=== PATIENT | male | born 1945 | race Two or more races ===

== ENCOUNTER 2016-07-18 15:46 | Inpatient (IN) | payer MEDICARE, OTHER ==
[~2016-07-18] VITALS: Ht 170.2 cm; Wt 84.5 kg
[~2016-07-18 15:46] MED LIST: ADV250 IH; ASPI81 PO; ATEN25 PO; CLOP75 PO; PIOG15TA21 PO; SIMV20TA6 PO; TERA1CAP4 PO
[2016-07-18] MEDS ORDERED: METF500T4 PO (15:57)
[2016-07-18] MEDS ORDERED: HYDR25TA PO (15:57)
[2016-07-18 16:06] LABS: GLUCOSE,POINT OF CARE 149 MG/DL (70-110)
[2016-07-18] MEDS ORDERED: ONDANSETRON HCL 4 MG/2 ML VIAL IVP ONE (16:15)
[2016-07-18] MEDS ORDERED: BARIUM SULFATE 0.1% SUSPENSION 450 ML BOTTLE PO ONE (16:15)
[2016-07-18] MEDS ORDERED: MORPHINE SULFATE 4 MG/ML SYRINGE IVP ONE ×2 (16:15→19:15)
[2016-07-18 16:23] LABS: BASOPHILS % (AUTO) 0.3 % (0.0-2.0); EOSINOPHILS % (AUTO) 0 % (1.0-6.0); HEMATOCRIT 40.8 % (41-53); HEMOGLOBIN 13.5 g/dL (13.5-17.5); LYMPHOCYTES # (AUTO) 0.9 K/uL (1.0-4.8); MEAN CORPUSCULAR HEMOGLOBIN 31.9 pg (26.0-34.0); MEAN CORPUSCULAR HGB CONC 33.1 G/dL (31.0-37.0); MEAN CORPUSCULAR VOLUME 96 fL (80-100); MONOCYTES # (AUTO) 0.9 K/uL (0.1-1.0); MONOCYTES % (AUTO) 5.7 % (2.0-9.0); NEUTROPHILS # (AUTO) 13.5 K/uL (1.8-7.7); PLATELET COUNT (AUTO) 280 K/uL (150-450); RED BLOOD CELL COUNT(AUTO) 4.23 MIL/uL (4.50-5.90); RED CELL DISTRIBUTION WIDTH 13.8 % (11.5-14.5); WHITE BLOOD COUNT (AUTO) 15.3 K/uL (4.5-11.0)
[2016-07-18] MEDS ORDERED: SODIUM CHLORIDE 0.9% 1,000 ML IV ONE ×2 (16:45→18:45)
[2016-07-18 16:50] LABS: RBC MORPHOLOGY COMMENT ABNORMAL RBC MORPH
[2016-07-18 17:05] LABS: BILIRUBIN,TOTAL 0.9 mg/dL (0.1-1.0); CREATININE 1.86 mg/dL (0.60-1.30); TOTAL PROTEIN, SERUM 8.8 g/dL (6.4-8.2)
[2016-07-18 17:08] LABS: APPEARANCE,URINE TURBID (CLEAR); GLUCOSE, URINE (UA) NEGATIVE (NEGATIVE); KETONES,URINE TRACE mg/dL (NEGATIVE); LEUKOCYTE ESTERASE ,URINE LARGE (NEGATIVE); OCCULT BLOOD,URINE MODERATE (NEGATIVE); PH,URINE 5.5 (5.0-8.0); PROTEIN,URINE SEE CONFIRM (NEGATIVE)
[2016-07-18 17:09] LABS: POTASSIUM 2.9 mmol/L (3.5-5.1)
[2016-07-18 17:15] LABS: ADD UA MICROSCOPIC YES
[2016-07-18] MEDS ORDERED: POTASSIUM CHLORIDE 20 MEQ ER TABLET PO ONE (17:15)
[2016-07-18 17:16] LABS: SQUAMOUS EPITHELIAL CELL,UR Rare /LPF (None Seen); SULFOSALICYLIC ACID,URINE 3+ (Negative); WBC,URINE >100 /HPF (0-5)
[2016-07-18 17:28] LABS: MAGNESIUM 1.5 mg/dL (1.80-2.40); PHOSPHORUS 2.1 mg/dL (2.5-4.9)
[2016-07-18] MEDS: POTASSIUM CHL 10 MEQ/WATER 50 ML IV SCH ×2 (17:29→18:27)
[2016-07-18 19:04] LABS: LACTIC ACID 2.7 mmol/L (0.4-2.0)
[2016-07-18] MEDS ORDERED: CefTRIAXone SODIUM 2 GM in DEXTROSE 5%-WATER 50 ML IV ONE (19:45)
[2016-07-18 20:21] LABS: REFLEX LACTIC ACID? YES YES
[2016-07-18] MEDS ORDERED: BISACODYL 10 MG RECTAL RECTAL SUPPOSITORY PR PRN (21:15)
[2016-07-18] MEDS ORDERED: IPRATROPIUM BROMIDE 0.5 MG/2.5 ML NEB SOLUTION NEB PRN (21:15)
[2016-07-18] MEDS ORDERED: ALBUTEROL SULFATE 2.5 MG/0.5 ML NEB SOLUTION NEB PRN (21:15)
[2016-07-18] MEDS ORDERED: HYDROCODONE/ACETAMINOPHEN 5-325 MG TABLET PO PRN (21:15)
[2016-07-18] MEDS ORDERED: ONDANSETRON HCL 4 MG/2 ML VIAL IVP PRN (21:15)
[2016-07-18] MEDS ORDERED: MAGNESIUM HYDROXIDE SUSPENSION 30 ML UDCUP PO PRN (21:15)
[2016-07-18] MEDS ORDERED: DEXTROSE 50%-WATER 25 GM/50 ML SYRINGE IVP PRN (21:15)
[2016-07-18] MEDS ORDERED: MORPHINE SULFATE 4 MG/ML SYRINGE IVP PRN (21:15)
[2016-07-18] MEDS ORDERED: POTASSIUM PHOS,M-BASIC-D-BASIC 20 MMOL in DEXTROSE 5%-WATER 150 ML IV ONE (21:30)
[2016-07-18 21:44] LABS: BASOPHILS % (AUTO) 0.1 % (0.0-2.0); EOSINOPHILS % (AUTO) 0 % (1.0-6.0); HEMOGLOBIN 12.4 g/dL (13.5-17.5); LYMPHOCYTES # (AUTO) 0.9 K/uL (1.0-4.8); LYMPHOCYTES % (AUTO) 5.7 % (22.0-44.0); MEAN CORPUSCULAR HEMOGLOBIN 31.7 pg (26.0-34.0); MEAN CORPUSCULAR HGB CONC 32.5 G/dL (31.0-37.0); MEAN CORPUSCULAR VOLUME 97 fL (80-100); MONOCYTES % (AUTO) 6.7 % (2.0-9.0); NEUTROPHILS # (AUTO) 13.5 K/uL (1.8-7.7); PLATELET COUNT (AUTO) 245 K/uL (150-450); RED BLOOD CELL COUNT(AUTO) 3.91 MIL/uL (4.50-5.90); RED CELL DISTRIBUTION WIDTH 13.2 % (11.5-14.5); WHITE BLOOD COUNT (AUTO) 15.4 K/uL (4.5-11.0)
[2016-07-18 21:47] LABS: NEUTROPHILS % (AUTO) 87.5 % (40.0-70.0)
[2016-07-18 22:03] LABS: RBC MORPHOLOGY COMMENT NORMAL RBC MORPH
[2016-07-19] MEDS: HEPARIN SODIUM,PORCINE 5,000 UNITS/ML VIAL SQ SCH ×4 (00:24→23:40)
[2016-07-19 07:20] LABS: BASOPHILS % (AUTO) 0.1 % (0.0-2.0); EOSINOPHILS % (AUTO) 0.1 % (1.0-6.0); HEMATOCRIT 33.7 % (41-53); HEMOGLOBIN 11.2 g/dL (13.5-17.5); LYMPHOCYTES # (AUTO) 0.5 K/uL (1.0-4.8); LYMPHOCYTES % (AUTO) 4.2 % (22.0-44.0); MEAN CORPUSCULAR HGB CONC 33.2 G/dL (31.0-37.0); MEAN CORPUSCULAR VOLUME 96 fL (80-100); MONOCYTES # (AUTO) 0.7 K/uL (0.1-1.0); NEUTROPHILS # (AUTO) 10.9 K/uL (1.8-7.7); PLATELET COUNT (AUTO) 209 K/uL (150-450); RED CELL DISTRIBUTION WIDTH 13.8 % (11.5-14.5); WHITE BLOOD COUNT (AUTO) 12.1 K/uL (4.5-11.0)
[2016-07-19 07:21] LABS: NEUTROPHILS % (AUTO) 89.6 % (40.0-70.0); RBC MORPHOLOGY COMMENT NORMAL RBC MORPH
[2016-07-19 07:35] LABS: ALBUMIN 2.3 g/dL (3.4-5.0); BILIRUBIN,TOTAL 0.5 mg/dL (0.1-1.0); CALCIUM, TOTAL 7.1 mg/dL (8.8-10.5); CREATININE 1.55 mg/dL (0.60-1.30); POTASSIUM 3.3 mmol/L (3.5-5.1)
[2016-07-19] MEDS: PANTOPRAZOLE SODIUM 40 MG/VIAL IVP SCH (07:59)
[2016-07-19] MEDS: DOCUSATE SODIUM 100 MG CAPSULE PO SCH ×2 (08:00→21:00)
[2016-07-19] MEDS: CLOPIDOGREL BISULFATE 75 MG TABLET PO SCH (08:00)
[2016-07-19] MEDS: ASPIRIN 81 MG CHEWABLE TABLET PO SCH (08:00)
[2016-07-19] MEDS: ATENOLOL 25 MG TABLET PO SCH (08:27)
[2016-07-19] MEDS: TERAZOSIN HCL 1 MG CAPSULE PO SCH (08:27)
[2016-07-19] MEDS: PIOGLITAZONE HCL 15 MG TABLET PO SCH (08:27)
[2016-07-19 09:55] VITALS: BP 132/74
[2016-07-19 11:10] VITALS: BP 116/71
[2016-07-19] MEDS ORDERED: PNEUMOCOCCAL VACCINE POLYVALENT 0.5 ML VIAL [PPSV23] IM ONE (13:00)
[2016-07-19 15:15] VITALS: BP 122/58
[2016-07-19] MEDS ORDERED: POTASSIUM CHLORIDE 20 MEQ ER TABLET PO PRN (15:30)
[2016-07-19] MEDS: ACETAMINOPHEN 325 MG TABLET PO PRN ×2 (16:02→23:40)
[2016-07-19 19:19] VITALS: BP 123/64
[2016-07-19] MEDS ORDERED: CefTRIAXone 1 GM/DEXTROSE 50 ML IV SCH (21:00)
[2016-07-19] MEDS: SIMVASTATIN 20 MG TABLET PO SCH (21:14)
[2016-07-19] MEDS ORDERED: SODIUM CHLORIDE 0.9% 500 ML IV ONE (23:37)
[2016-07-19 23:51] VITALS: BP 134/63
[2016-07-20 03:59] VITALS: BP 115/64
[2016-07-20 06:45] LABS: BASOPHILS % (AUTO) 0.1 % (0.0-2.0); EOSINOPHILS % (AUTO) 0.6 % (1.0-6.0); HEMOGLOBIN 11.7 g/dL (13.5-17.5); LYMPHOCYTES # (AUTO) 0.8 K/uL (1.0-4.8); LYMPHOCYTES % (AUTO) 8.5 % (22.0-44.0); MEAN CORPUSCULAR HEMOGLOBIN 31.8 pg (26.0-34.0); MEAN CORPUSCULAR HGB CONC 32.4 G/dL (31.0-37.0); MEAN CORPUSCULAR VOLUME 98 fL (80-100); MONOCYTES # (AUTO) 0.9 K/uL (0.1-1.0); MONOCYTES % (AUTO) 10.4 % (2.0-9.0); NEUTROPHILS # (AUTO) 7.3 K/uL (1.8-7.7); NEUTROPHILS % (AUTO) 80.4 % (40.0-70.0); PLATELET COUNT (AUTO) 223 K/uL (150-450); RED BLOOD CELL COUNT(AUTO) 3.67 MIL/uL (4.50-5.90); RED CELL DISTRIBUTION WIDTH 13.9 % (11.5-14.5); WHITE BLOOD COUNT (AUTO) 9.1 K/uL (4.5-11.0)
[2016-07-20 07:01] LABS: ALBUMIN 2.2 g/dL (3.4-5.0); BILIRUBIN,TOTAL 0.4 mg/dL (0.1-1.0); CALCIUM, TOTAL 7.8 mg/dL (8.8-10.5); CREATININE 1.57 mg/dL (0.60-1.30); POTASSIUM 3.8 mmol/L (3.5-5.1); TOTAL PROTEIN, SERUM 7.1 g/dL (6.4-8.2)
[2016-07-20 07:46] LABS: GLUCOSE,POINT OF CARE 113 MG/DL (70-110)
[2016-07-20 08:00] VITALS: BP 136/96
[2016-07-20 08:01] LABS: GLUCOSE,POINT OF CARE 109 MG/DL (70-110)
[2016-07-20] MEDS: CLOPIDOGREL BISULFATE 75 MG TABLET PO SCH (08:49)
[2016-07-20] MEDS: TERAZOSIN HCL 1 MG CAPSULE PO SCH (08:49)
[2016-07-20] MEDS: DOCUSATE SODIUM 100 MG CAPSULE PO SCH ×2 (08:49→21:00)
[2016-07-20] MEDS: PIOGLITAZONE HCL 15 MG TABLET PO SCH (08:49)
[2016-07-20] MEDS: ATENOLOL 25 MG TABLET PO SCH (08:49)
[2016-07-20] MEDS: ASPIRIN 81 MG CHEWABLE TABLET PO SCH (08:49)
[2016-07-20] MEDS: HEPARIN SODIUM,PORCINE 5,000 UNITS/ML VIAL SQ SCH ×2 (08:50→17:16)
[2016-07-20] MEDS: PANTOPRAZOLE SODIUM 40 MG/VIAL IVP SCH (08:50)
[2016-07-20 11:17] VITALS: BP 119/62
[2016-07-20 11:47] LABS: GLUCOSE,POINT OF CARE 127 MG/DL (70-110)
[2016-07-20] MEDS: PIPERACILLIN/TAZO 3.375 GM/D5W 50 ML IV SCH ×2 (12:15→17:18)
[2016-07-20] MEDS: INSULIN ASPART 100 UNITS/ML SQ PRN ×2 (12:15→17:23)
[2016-07-20 15:03] VITALS: BP 119/62
[2016-07-20 19:36] VITALS: BP 149/80
[2016-07-20] MEDS: ACETAMINOPHEN 325 MG TABLET PO PRN (20:12)
[2016-07-20] MEDS: SIMVASTATIN 20 MG TABLET PO SCH (20:12)
[2016-07-20] MEDS: ZOLPIDEM TARTRATE 5 MG TABLET PO PRN (21:52)
[2016-07-20 23:17] VITALS: BP 116/50
[2016-07-21 00:46] LABS: GLUCOSE,POINT OF CARE 97 MG/DL (70-110)
[2016-07-21 03:52] LABS: GLUCOSE COMMENT 1 Received Meds; GLUCOSE,POINT OF CARE 129 MG/DL (70-110)
[2016-07-21 04:36] VITALS: BP 114/57
[2016-07-21] MEDS: PIPERACILLIN/TAZO 3.375 GM/D5W 50 ML IV SCH ×5 (06:00→23:49)
[2016-07-21 06:29] LABS: BASOPHILS % (AUTO) 0.1 % (0.0-2.0); EOSINOPHILS % (AUTO) 1.7 % (1.0-6.0); HEMATOCRIT 34.6 % (41-53); HEMOGLOBIN 11.4 g/dL (13.5-17.5); LYMPHOCYTES # (AUTO) 0.8 K/uL (1.0-4.8); LYMPHOCYTES % (AUTO) 10.9 % (22.0-44.0); MEAN CORPUSCULAR HEMOGLOBIN 31.9 pg (26.0-34.0); MEAN CORPUSCULAR HGB CONC 33.1 G/dL (31.0-37.0); MEAN CORPUSCULAR VOLUME 96 fL (80-100); MONOCYTES # (AUTO) 0.8 K/uL (0.1-1.0); MONOCYTES % (AUTO) 10.7 % (2.0-9.0); NEUTROPHILS # (AUTO) 5.7 K/uL (1.8-7.7); NEUTROPHILS % (AUTO) 76.6 % (40.0-70.0); PLATELET COUNT (AUTO) 231 K/uL (150-450); RED BLOOD CELL COUNT(AUTO) 3.59 MIL/uL (4.50-5.90); RED CELL DISTRIBUTION WIDTH 13.9 % (11.5-14.5); WHITE BLOOD COUNT (AUTO) 7.4 K/uL (4.5-11.0)
[2016-07-21 06:37] LABS: GLUCOSE COMMENT 1 Received Meds; GLUCOSE,POINT OF CARE 125 MG/DL (70-110)
[2016-07-21 07:03] LABS: ALBUMIN 2.2 g/dL (3.4-5.0); BILIRUBIN,TOTAL 0.3 mg/dL (0.1-1.0); CALCIUM, TOTAL 7.8 mg/dL (8.8-10.5); CREATININE 1.49 mg/dL (0.60-1.30); POTASSIUM 3.5 mmol/L (3.5-5.1); TOTAL PROTEIN, SERUM 7.2 g/dL (6.4-8.2)
[2016-07-21 07:37] VITALS: BP 128/69
[2016-07-21] MEDS: PANTOPRAZOLE SODIUM 40 MG/VIAL IVP SCH (08:33)
[2016-07-21] MEDS: TERAZOSIN HCL 1 MG CAPSULE PO SCH (08:34)
[2016-07-21] MEDS: DOCUSATE SODIUM 100 MG CAPSULE PO SCH (08:34)
[2016-07-21] MEDS: PIOGLITAZONE HCL 15 MG TABLET PO SCH (08:34)
[2016-07-21] MEDS: HEPARIN SODIUM,PORCINE 5,000 UNITS/ML VIAL SQ SCH ×4 (08:34→23:49)
[2016-07-21] MEDS: ASPIRIN 81 MG CHEWABLE TABLET PO SCH (08:34)
[2016-07-21] MEDS: CLOPIDOGREL BISULFATE 75 MG TABLET PO SCH (08:34)
[2016-07-21] MEDS: ATENOLOL 25 MG TABLET PO SCH (08:36)
[2016-07-21 11:02] VITALS: BP 105/56
[2016-07-21] MEDS: INSULIN ASPART 100 UNITS/ML SQ PRN (11:42)
[2016-07-21 16:00] VITALS: BP 111/53
[2016-07-21 16:42] LABS: GLUCOSE,POINT OF CARE 99 MG/DL (70-110)
[2016-07-21 20:09] VITALS: BP 120/65
[2016-07-21] MEDS: ACETAMINOPHEN 325 MG TABLET PO PRN (20:57)
[2016-07-21] MEDS: ZOLPIDEM TARTRATE 5 MG TABLET PO PRN (20:57)
[2016-07-21] MEDS: SIMVASTATIN 20 MG TABLET PO SCH (20:57)
[2016-07-21 23:46] VITALS: BP 126/54
[2016-07-22] MEDS: CefTRIAXone 1 GM/DEXTROSE 50 ML IV SCH (05:25)
[2016-07-22 05:27] VITALS: BP 145/76
[2016-07-22 06:15] LABS: BASOPHILS # (AUTO) 0.01 K/uL (0.00-0.20); BASOPHILS % (AUTO) 0.1 % (0.0-2.0); EOSINOPHILS # (AUTO) 0.22 K/uL (0.00-0.70); EOSINOPHILS % (AUTO) 3.26 % (1.0-6.0); HEMATOCRIT 36.4 % (41-53); LYMPHOCYTES # (AUTO) 1.1 K/uL (1.0-4.8); LYMPHOCYTES % (AUTO) 16.1 % (22.0-44.0); MEAN CORPUSCULAR HEMOGLOBIN 32.5 pg (26.0-34.0); MEAN CORPUSCULAR HGB CONC 32.9 G/dL (31.0-37.0); MEAN CORPUSCULAR VOLUME 99 fL (80-100); MONOCYTES # (AUTO) 0.7 K/uL (0.1-1.0); MONOCYTES % (AUTO) 9.5 % (2.0-9.0); NEUTROPHILS # (AUTO) 4.9 K/uL (1.8-7.7); PLATELET COUNT (AUTO) 265 K/uL (150-450); RED BLOOD CELL COUNT(AUTO) 3.69 MIL/uL (4.50-5.90); WHITE BLOOD COUNT (AUTO) 6.9 K/uL (4.5-11.0)
[2016-07-22 06:34] LABS: ALBUMIN 2.2 g/dL (3.4-5.0); BILIRUBIN,TOTAL 0.3 mg/dL (0.1-1.0); CALCIUM, TOTAL 8.1 mg/dL (8.8-10.5); CREATININE 1.41 mg/dL (0.60-1.30); POTASSIUM 4.1 mmol/L (3.5-5.1); TOTAL PROTEIN, SERUM 7.2 g/dL (6.4-8.2)
[2016-07-22 06:52] LABS: GLUCOSE,POINT OF CARE 96 MG/DL (70-110)
[2016-07-22 07:20] VITALS: BP 125/63
[2016-07-22] MEDS: HEPARIN SODIUM,PORCINE 5,000 UNITS/ML VIAL SQ SCH ×3 (08:28→23:27)
[2016-07-22] MEDS: PANTOPRAZOLE SODIUM 40 MG/VIAL IVP SCH (08:28)
[2016-07-22] MEDS: TERAZOSIN HCL 1 MG CAPSULE PO SCH (08:29)
[2016-07-22] MEDS: ATENOLOL 25 MG TABLET PO SCH (08:29)
[2016-07-22] MEDS: CLOPIDOGREL BISULFATE 75 MG TABLET PO SCH (08:29)
[2016-07-22] MEDS: TAMSULOSIN HCL 0.4 MG CAPSULE PO SCH (08:29)
[2016-07-22] MEDS: PIOGLITAZONE HCL 15 MG TABLET PO SCH (08:29)
[2016-07-22] MEDS: ASPIRIN 81 MG CHEWABLE TABLET PO SCH (08:30)
[2016-07-22] MEDS: ACETAMINOPHEN 325 MG TABLET PO PRN ×2 (08:30→20:23)
[2016-07-22 10:59] LABS: GLUCOSE,POINT OF CARE 120 MG/DL (70-110)
[2016-07-22 10:59] LABS: GLUCOSE,POINT OF CARE 92 MG/DL (70-110)
[2016-07-22 10:59] LABS: GLUCOSE,POINT OF CARE 125 MG/DL (70-110)
[2016-07-22 11:03] LABS: GLUCOSE,POINT OF CARE 113 MG/DL (70-110)
[2016-07-22 11:20] VITALS: BP 129/74
[2016-07-22 13:17] LABS: GLUCOSE,POINT OF CARE 116 MG/DL (70-110)
[2016-07-22 16:00] VITALS: BP 124/64
[2016-07-22 17:37] LABS: GLUCOSE,POINT OF CARE 105 MG/DL (70-110)
[2016-07-22 19:37] VITALS: BP 140/72
[2016-07-22] MEDS: ZOLPIDEM TARTRATE 5 MG TABLET PO PRN (20:11)
[2016-07-22] MEDS: SIMVASTATIN 20 MG TABLET PO SCH (20:11)
[2016-07-22 20:57] LABS: GLUCOSE,POINT OF CARE 129 MG/DL (70-110)
[2016-07-22 23:28] VITALS: BP 105/53
[2016-07-23 04:17] VITALS: BP 117/54
[2016-07-23] MEDS: CefTRIAXone 1 GM/DEXTROSE 50 ML IV SCH (05:26)
[2016-07-23 06:41] LABS: BASOPHILS % (AUTO) 0.3 % (0.0-2.0); EOSINOPHILS % (AUTO) 2.1 % (1.0-6.0); HEMATOCRIT 36.3 % (41-53); HEMOGLOBIN 11.9 g/dL (13.5-17.5); LYMPHOCYTES # (AUTO) 1.2 K/uL (1.0-4.8); LYMPHOCYTES % (AUTO) 13.8 % (22.0-44.0); MEAN CORPUSCULAR HEMOGLOBIN 31.9 pg (26.0-34.0); MEAN CORPUSCULAR HGB CONC 32.8 G/dL (31.0-37.0); MEAN CORPUSCULAR VOLUME 97 fL (80-100); MONOCYTES # (AUTO) 0.4 K/uL (0.1-1.0); MONOCYTES % (AUTO) 5.2 % (2.0-9.0); NEUTROPHILS # (AUTO) 6.8 K/uL (1.8-7.7); NEUTROPHILS % (AUTO) 78.6 % (40.0-70.0); PLATELET COUNT (AUTO) 280 K/uL (150-450); RED BLOOD CELL COUNT(AUTO) 3.73 MIL/uL (4.50-5.90); RED CELL DISTRIBUTION WIDTH 14.2 % (11.5-14.5); WHITE BLOOD COUNT (AUTO) 8.6 K/uL (4.5-11.0)
[2016-07-23 06:52] LABS: GLUCOSE,POINT OF CARE 99 MG/DL (70-110)
[2016-07-23 07:05] LABS: ALBUMIN 2.2 g/dL (3.4-5.0); BILIRUBIN,TOTAL 0.2 mg/dL (0.1-1.0); CALCIUM, TOTAL 8.3 mg/dL (8.8-10.5); CREATININE 1.27 mg/dL (0.60-1.30); POTASSIUM 4.5 mmol/L (3.5-5.1); TOTAL PROTEIN, SERUM 7.1 g/dL (6.4-8.2)
[2016-07-23 07:11] VITALS: BP 132/66
[2016-07-23] MEDS: HEPARIN SODIUM,PORCINE 5,000 UNITS/ML VIAL SQ SCH (08:00)
[2016-07-23] MEDS: PANTOPRAZOLE SODIUM 40 MG/VIAL IVP SCH (09:12)
[2016-07-23] MEDS ORDERED: RINGERS SOLUTION,LACTATED 1,000 ML IV ONE ×2 (11:00→11:12)
[2016-07-23 11:23] LABS: GLUCOSE,POINT OF CARE 102 MG/DL (70-110)
[2016-07-23] MEDS ORDERED: WATER FOR IRRIGATION,STERILE 3,000 ML IRRIG ONE (11:59)
[2016-07-23] MEDS ORDERED: LIDOCAINE HCL 2% 30 ML JELLY ONE (12:00)
[2016-07-23] MEDS ORDERED: KETAMINE HCL 50 MG/ML 10 ML VIAL ONE (12:38)
[2016-07-23 14:08] VITALS: BP 144/76
[2016-07-23 15:49] VITALS: BP 151/77
[2016-07-23] MEDS ORDERED: CEFX1I IM (16:05)
[2016-07-23] MEDS: CLOPIDOGREL BISULFATE 75 MG TABLET PO SCH (16:14)
[2016-07-23] MEDS: ATENOLOL 25 MG TABLET PO SCH (16:14)
[2016-07-23] MEDS: TERAZOSIN HCL 1 MG CAPSULE PO SCH (16:14)
[2016-07-23] MEDS: TAMSULOSIN HCL 0.4 MG CAPSULE PO SCH (16:14)
[2016-07-23] MEDS: PIOGLITAZONE HCL 15 MG TABLET PO SCH (16:14)
[2016-07-23] MEDS: INSULIN ASPART 100 UNITS/ML SQ PRN (17:26)
[2016-07-23] MEDS ORDERED: MIDAZOLAM HCL 2 MG/2 ML VIAL IVP ONE (18:44)
[2016-07-23] MEDS ORDERED: LIDOCAINE HCL/PF 2% 5 ML VIAL IM ONE (18:44)
[2016-07-23] MEDS ORDERED: PROPOFOL 1% 20 ML VIAL IVP ONE (18:44)
[2016-07-23] MEDS ORDERED: FentaNYL CITRATE-PF 100 MCG/2 ML VIAL IVP ONE (18:44)
[2016-07-23 19:37] LABS: GLUCOSE COMMENT 1 Received Meds; GLUCOSE,POINT OF CARE 148 MG/DL (70-110)
== END 2016-07-23 18:45 | DRG 872 ==
LOC: EMS 15:49 → 6N 07-19 09:15
PROVIDERS: ADMIT Hospitalist; ATTEND Hospitalist
PROC: 3E0234Z Introduction of Serum, Toxoid and Vaccine into Muscle, Percutaneous Approach (ICD-10-PCS; 2016-07-23)
PROC: 0TJB8ZZ Inspection of Bladder, Via Natural or Artificial Opening Endoscopic (ICD-10-PCS; principal; 2016-07-23 12:00)
DX: A41.51 Sepsis due to Escherichia coli [E. coli] (principal); E87.1 Hypo-osmolality and hyponatremia; N17.9 Acute kidney failure, unspecified; E87.6 Hypokalemia; J44.9 Chronic obstructive pulmonary disease, unspecified; J45.909 Unspecified asthma, uncomplicated; E11.9 Type 2 diabetes mellitus without complications; E78.00 Pure hypercholesterolemia, unspecified; I10 Essential (primary) hypertension; N40.1 Benign prostatic hyperplasia with lower urinary tract symptoms; R33.8 Other retention of urine; E86.0 Dehydration; N30.90 Cystitis, unspecified without hematuria; N32.3 Diverticulum of bladder; N31.9 Neuromuscular dysfunction of bladder, unspecified; K40.90 Unilateral inguinal hernia, without obstruction or gangrene, not specified as recurrent; R19.7 Diarrhea, unspecified; B96.20 Unspecified Escherichia coli [E. coli] as the cause of diseases classified elsewhere; F15.10 Other stimulant abuse, uncomplicated; F17.210 Nicotine dependence, cigarettes, uncomplicated; Z23 Encounter for immunization; Z79.899 Other long term (current) drug therapy; Z79.02 Long term (current) use of antithrombotics/antiplatelets; Z79.82 Long term (current) use of aspirin; Z79.51 Long term (current) use of inhaled steroids; Z79.84 Long term (current) use of oral hypoglycemic drugs; Z86.73 Personal history of transient ischemic attack (TIA), and cerebral infarction without residual deficits
CPT/HCPCS: 70450; 74176; 82962; 83605; 83735; 84100; 84132; 84153; 87040; 87045; 87086; 87324; 87449; 90471; 93005; 96361; 96365; 96366; 96367; 96375; 96376; 99285; C9113; J0696; J1644; J2250; J2270; J2405; J2543; J2704; J3010; J3480; J3490; J7040; J7060; J7120

== ENCOUNTER 2023-10-30 07:35 | Inpatient (IN) | payer MEDICARE, OTHER ==
[~2023-10-30] VITALS: Ht 167.6 cm; Wt 77.3 kg
[~2023-10-30 07:35] MED LIST changes: -ADV250 IH; +ALBU18HF12 IH; +ASPI-1450 PO; -ASPI81 PO; +ATEN-73 PO; -ATEN25 PO; -CLOP75 PO; +CLOP75TA60 PO; +FLUT1DIS6 IH; +FURO20TA4 PO; +LEVO750T21 PO; +METF-1211 PO; +OSEL75CA45 PO; -PIOG15TA21 PO; +PIOG15TA66 PO; +SIMV-43 PO; -SIMV20TA6 PO; +TAMS0.4C94 PO; -TERA1CAP4 PO; +TERA5CAP77 PO
[2023-10-30 08:15] LABS: BASOPHILS % (AUTO) 0.9 % (0.0-2.0); EOSINOPHILS % (AUTO) 3.8 % (1.0-6.0); HEMATOCRIT 39.2 % (41-53); LYMPHOCYTES # (AUTO) 1.2 K/uL (1.0-4.8); LYMPHOCYTES % (AUTO) 17.1 % (22.0-44.0); MEAN CORPUSCULAR HEMOGLOBIN 30.7 pg (26.0-34.0); MEAN CORPUSCULAR HGB CONC 33.1 G/dL (31.0-37.0); MEAN CORPUSCULAR VOLUME 93 fL (80-100); MONOCYTES # (AUTO) 0.3 K/uL (0.1-1.0); MONOCYTES % (AUTO) 4.8 % (2.0-9.0); NEUTROPHILS # (AUTO) 5.2 K/uL (1.8-7.7); NEUTROPHILS % (AUTO) 73.4 % (40.0-70.0); PLATELET COUNT (AUTO) 317 K/uL (150-450); RED BLOOD CELL COUNT(AUTO) 4.22 MIL/uL (4.50-5.90); WHITE BLOOD COUNT (AUTO) 7.1 K/uL (4.5-11.0)
[2023-10-30 08:29] LABS: TROPONIN I-HIGH SENSITIVITY 9 ng/L (<76)
[2023-10-30 08:31] LABS: PROTHROMBIN TIME 10.1 SEC (9.4-11.6)
[2023-10-30 08:45] LABS: CALCIUM, TOTAL 8.4 mg/dL (8.8-10.5); CREATININE 1.38 mg/dL (0.60-1.30); POTASSIUM 3.2 mmol/L (3.5-5.1)
[2023-10-30 08:51] LABS: ALBUMIN 2.8 g/dL (3.4-5.0); BILIRUBIN,TOTAL 0.2 mg/dL (0.1-1.0); CHOL/HDL RATIO 3.9 (4.2-7.3); TOTAL PROTEIN, SERUM 7.6 g/dL (6.4-8.2)
[2023-10-30] MEDS: ASPIRIN 81 MG CHEWABLE TABLET PO ONE (09:01)
[2023-10-30] MEDS: CLOPIDOGREL BISULFATE 75 MG TABLET PO ONE (09:01)
[2023-10-30 10:21] LABS: APPEARANCE,URINE CLEAR (CLEAR); BILIRUBIN,URINE NEGATIVE (NEGATIVE); COLOR,URINE LIGHT YELLOW (YELLOW); GLUCOSE, URINE (UA) NEGATIVE (NEGATIVE); KETONES,URINE NEGATIVE (NEGATIVE); LEUKOCYTE ESTERASE ,URINE LARGE (NEGATIVE); NITRATE,URINE NEGATIVE (NEGATIVE); OCCULT BLOOD,URINE TRACE (NEGATIVE); PH,URINE 6.5 (5.0-8.0); PH,URINE DRUG SCREEN 6.5 (5.0-8.0); PROTEIN,URINE 30-70 mg/dL (NEGATIVE); SPECIFIC GRAVITIY, URINE 1.031 (1.003-1.030); UROBILINOGEN,URINE <=1.0 mg/dL (<=1.0)
[2023-10-30 10:28] LABS: BACTERIA,URINE Moderate /HPF (None Seen); RBC,URINE 0-2 /HPF (0-2); WBC,URINE 26-50 /HPF (0-5)
[2023-10-30 10:29] LABS: RENAL EPITHELIAL CELLS,URINE Few /LPF (None Seen); SQUAMOUS EPITHELIAL CELL,UR Moderate /LPF (None Seen)
[2023-10-30 10:50] LABS: ALCOHOL, URINE DRUG SCREEN NEGATIVE (NEGATIVE); AMPHET/METH SCREEN,URINE POSITIVE (NEGATIVE); BARBITURATE SCREEN, URINE NEGATIVE (NEGATIVE); BENZODIAZEPINES SCREEN,URINE NEGATIVE (NEGATIVE); CANNABINOID SCREEN,URINE NEGATIVE (NEGATIVE); COCAINE SCREEN,URINE NEGATIVE (NEGATIVE); METHADONE SCREEN, URINE NEGATIVE (NEGATIVE); OPIATE SCREEN,URINE NEGATIVE (NEGATIVE); PHENCYCLIDINE SCREEN,URINE POSITIVE (NEGATIVE)
[2023-10-30] MEDS: POTASSIUM CHLORIDE 10% 40 MEQ/30 ML LIQUID UDCUP PO ONE (10:54)
[2023-10-30 11:37] VITALS: BP 149/83; PULSE 73; RESP 18; TEMP 98.5; O2SAT 98
[2023-10-30 16:32] VITALS: BP 183/87; PULSE 80; RESP 18; TEMP 98; O2SAT 97
[2023-10-30 16:57] LABS: TROPONIN I-HIGH SENSITIVITY 8 ng/L (<76)
[2023-10-30] MEDS: MetFORMIN HCL 500 MG TABLET PO SCH (17:08)
[2023-10-30] MEDS: ATENOLOL 25 MG TABLET PO ONE (17:08)
[2023-10-30 20:09] VITALS: BP 126/73; PULSE 72; RESP 18; TEMP 98.6; O2SAT 96
[2023-10-30] MEDS: TAMSULOSIN HCL 0.4 MG CAPSULE PO SCH (20:40)
[2023-10-30] MEDS: SIMVASTATIN 20 MG TABLET PO SCH (20:40)
[2023-10-30 20:48] LABS: TROPONIN I-HIGH SENSITIVITY 11 ng/L (<76)
[2023-10-31 06:32] LABS: BASOPHILS % (AUTO) 0.5 % (0.0-2.0); EOSINOPHILS % (AUTO) 3.9 % (1.0-6.0); HEMATOCRIT 39.8 % (41-53); HEMOGLOBIN 13.4 g/dL (13.5-17.5); LYMPHOCYTES # (AUTO) 1.6 K/uL (1.0-4.8); LYMPHOCYTES % (AUTO) 16.7 % (22.0-44.0); MEAN CORPUSCULAR HEMOGLOBIN 31.2 pg (26.0-34.0); MEAN CORPUSCULAR HGB CONC 33.7 G/dL (31.0-37.0); MEAN CORPUSCULAR VOLUME 93 fL (80-100); MONOCYTES # (AUTO) 0.6 K/uL (0.1-1.0); NEUTROPHILS # (AUTO) 7.2 K/uL (1.8-7.7); NEUTROPHILS % (AUTO) 72.9 % (40.0-70.0); PLATELET COUNT (AUTO) 322 K/uL (150-450); RED BLOOD CELL COUNT(AUTO) 4.31 MIL/uL (4.50-5.90); RED CELL DISTRIBUTION WIDTH 15.3 % (11.5-14.5); WHITE BLOOD COUNT (AUTO) 9.8 K/uL (4.5-11.0)
[2023-10-31 07:28] LABS: CALCIUM, TOTAL 8.9 mg/dL (8.8-10.5); CREATININE 1.35 mg/dL (0.60-1.30)
[2023-10-31 07:33] VITALS: BP 150/68; PULSE 68; RESP 19; TEMP 98.4; O2SAT 97
[2023-10-31] MEDS ORDERED: SODIUM CHLORIDE 0.9% 100 ML ONE (07:41)
[2023-10-31] MEDS ORDERED: IOHEXOL 350 MG/ML 100 ML VIAL ONE (07:41)
[2023-10-31] MEDS: FUROSEMIDE 20 MG TABLET PO SCH (09:55)
[2023-10-31] MEDS: ASPIRIN 81 MG CHEWABLE TABLET PO SCH (09:55)
[2023-10-31] MEDS: CLOPIDOGREL BISULFATE 75 MG TABLET PO SCH (09:55)
[2023-10-31] MEDS: PIOGLITAZONE HCL 15 MG TABLET PO SCH (09:55)
[2023-10-31] MEDS: ATENOLOL 25 MG TABLET PO SCH (09:57)
[2023-10-31 11:55] VITALS: BP 139/74; PULSE 71; RESP 19; TEMP 98.3; O2SAT 96
[2023-10-31 13:55] VITALS: BP 143/77; PULSE 72; RESP 20; TEMP 98.4; O2SAT 100
[2023-10-31 15:54] VITALS: BP 140/77; PULSE 68; RESP 20; TEMP 98.5; O2SAT 99
[2023-10-31 20:05] VITALS: BP 128/69; PULSE 83; RESP 18; TEMP 98.4; O2SAT 99
[2023-10-31] MEDS: TERAZOSIN HCL 5 MG CAPSULE PO SCH (21:05)
== END 2023-10-31 21:33 | disposition short-term general hospital (02) | DRG 64 ==
LOC: EMS 07:35 → EDBEDREQ 09:02 → EDH 09:55 → 5S 11:12 → 4E 10-31 13:35
PROVIDERS: ADMIT Internal Medicine; ATTEND Internal Medicine
DX: I63.9 Cerebral infarction, unspecified (principal); I50.31 Acute diastolic (congestive) heart failure; N17.9 Acute kidney failure, unspecified; I65.21 Occlusion and stenosis of right carotid artery; E78.00 Pure hypercholesterolemia, unspecified; N40.0 Benign prostatic hyperplasia without lower urinary tract symptoms; E87.6 Hypokalemia; E11.9 Type 2 diabetes mellitus without complications; F17.200 Nicotine dependence, unspecified, uncomplicated; J44.9 Chronic obstructive pulmonary disease, unspecified; I11.0 Hypertensive heart disease with heart failure
CPT/HCPCS: 70496; 70498; 71045; 80048; 80053; 80061; 80307; 81001; 82948; 84484; 85025; 85610; 85730; 87086; 87186; 92610; 93005; 93306; 93880; 97116; 97163; 97166; 97535; 99285; J7050; 36415-L1; 36415-TC; 70450; 70450-TC

== ENCOUNTER 2024-02-05 14:37 | Emergency (ER) | payer MEDICARE, OTHER ==
[~2024-02-05] VITALS: Ht 170.2 cm; Wt 72.7 kg
[~2024-02-05 14:37] MED LIST changes: +FLUT1BLS6 IH; -FLUT1DIS6 IH; -LEVO750T21 PO; -OSEL75CA45 PO
[2024-02-05 14:41] VITALS: TEMP 98
[2024-02-05] MEDS ORDERED: CLOP75TA32 PO (14:44)
[2024-02-05] MEDS ORDERED: LISI10TA24 PO (14:44)
[2024-02-05 15:56] LABS: BASOPHILS % (AUTO) 0.2 % (0.0-2.0); EOSINOPHILS % (AUTO) 0.4 % (1.0-6.0); HEMATOCRIT 31.8 % (41-53); HEMOGLOBIN 10.6 g/dL (13.5-17.5); LYMPHOCYTES # (AUTO) 1.2 K/uL (1.0-4.8); LYMPHOCYTES % (AUTO) 11.8 % (22.0-44.0); MEAN CORPUSCULAR HEMOGLOBIN 29.8 pg (26.0-34.0); MEAN CORPUSCULAR HGB CONC 33.2 G/dL (31.0-37.0); MEAN CORPUSCULAR VOLUME 90 fL (80-100); MONOCYTES # (AUTO) 0.7 K/uL (0.1-1.0); MONOCYTES % (AUTO) 6.7 % (2.0-9.0); NEUTROPHILS % (AUTO) 80.9 % (40.0-70.0); PLATELET COUNT (AUTO) 408 K/uL (150-450); RED BLOOD CELL COUNT(AUTO) 3.55 MIL/uL (4.50-5.90); RED CELL DISTRIBUTION WIDTH 14.4 % (11.5-14.5); WHITE BLOOD COUNT (AUTO) 9.9 K/uL (4.5-11.0)
[2024-02-05] MEDS: METHOCARBAMOL 500 MG TABLET PO ONE (16:05)
[2024-02-05 16:06] LABS: CALCIUM, TOTAL 8.7 mg/dL (8.8-10.5); CREATININE 1.33 mg/dL (0.60-1.30); POTASSIUM 4.2 mmol/L (3.5-5.1)
[2024-02-05] MEDS: ACETAMINOPHEN 325 MG TABLET PO ONE (16:06)
[2024-02-05] MEDS: LIDOCAINE 5% TRANSDERMAL PATCH TD ONE (16:06)
[2024-02-05 16:28] LABS: APPEARANCE,URINE CLEAR (CLEAR); BILIRUBIN,URINE NEGATIVE (NEGATIVE); COLOR,URINE LIGHT YELLOW (YELLOW); GLUCOSE, URINE (UA) NEGATIVE (NEGATIVE); KETONES,URINE NEGATIVE (NEGATIVE); LEUKOCYTE ESTERASE ,URINE NEGATIVE (NEGATIVE); NITRATE,URINE NEGATIVE (NEGATIVE); OCCULT BLOOD,URINE NEGATIVE (NEGATIVE); PH,URINE 5.5 (5.0-8.0); PROTEIN,URINE 30-70 mg/dL (NEGATIVE); SPECIFIC GRAVITIY, URINE 1.023 (1.003-1.030); UROBILINOGEN,URINE <=1.0 mg/dL (<=1.0)
[2024-02-05 18:40] VITALS: BP 151/76; PULSE 86; RESP 18; O2SAT 99
[2024-02-05] MEDS: OxyCODONE HCL 5 MG IR TABLET PO ONE (18:41)
[2024-02-05] MEDS: KETOROLAC TROMETHAMINE 30 MG/ML VIAL IM ONE (18:42)
== END 2024-02-05 19:59 | disposition home or self-care (01) ==
LOC: EMS 14:37
DX: M54.50 Low back pain, unspecified (principal); M79.603 Pain in arm, unspecified; M79.606 Pain in leg, unspecified; J44.89 Other specified chronic obstructive pulmonary disease; E11.9 Type 2 diabetes mellitus without complications; E78.00 Pure hypercholesterolemia, unspecified; D64.9 Anemia, unspecified; I10 Essential (primary) hypertension; F17.210 Nicotine dependence, cigarettes, uncomplicated; F10.90 Alcohol use, unspecified, uncomplicated; Z79.02 Long term (current) use of antithrombotics/antiplatelets; Z79.51 Long term (current) use of inhaled steroids; Z79.82 Long term (current) use of aspirin; Z79.84 Long term (current) use of oral hypoglycemic drugs; Z98.890 Other specified postprocedural states; Y90.9 Presence of alcohol in blood, level not specified
CPT/HCPCS: 99283; 80048; 81003; 82962; 85025; 36415; 96372; J1885